=== PATIENT | female | born 1965 | race Caucasian/White ===

== ENCOUNTER → 2016-11-17 | Outpatient (CLI) | payer OTHER ==
--- NOTE | 2016-11-17 10:49 | DIAGNOSTIC IMAGING REPORT ---
RIGHT HAND 3 VIEWS HISTORY: RT HAND/THUMB PAIN Right COMPARISON: Right wrist 08/09/2014. FINDINGS: There is no fracture or dislocation. Soft tissues are unremarkable. Moderate to severe cartilage space narrowing at the STT joint. This is progressed. Mild cartilage space narrowing at the DIP joints. IMPRESSION: 1. No fracture or dislocation within the right hand. 2. 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 Electronically signed by: Salvador Barker M.D. 11/17/2016 10:47 AM Dictated Date/Time: 11/17/2016 10:44 AM
== END | disposition home or self-care (01) ==
LOC: C.RDSM 13:19
PROVIDERS: ATTEND Family Medicine
DX: M79.643 Pain in unspecified hand (principal); M19.031 Primary osteoarthritis, right wrist

== ENCOUNTER 2017-06-19 04:44 | Emergency (ER) | payer OTHER ==
[~2017-06-19] VITALS: Ht 152.4 cm; Wt 67.6 kg
[2017-06-19 04:46] VITALS: TEMP 36; Ht 152.4 cm; Wt 67.6 kg
[2017-06-19] MEDS ORDERED: KETOROLAC TROMETHAMINE 30 MG/ML VIAL IV STA (05:21)
[2017-06-19] MEDS ORDERED: IBUP-1050 PO (05:36)
[2017-06-19] MEDS ORDERED: ASPI1TAB48 PO (05:37)
[2017-06-19 06:09] LABS: BUN/CREATININE RATIO 20.3 (10-20); C-REACTIVE PROTEIN 0.29 mg/dl (0-0.29); CALCIUM 8.9 mg/dl (8.5-10.1); CREATININE 0.72 mg/dl (0.60-1.20); POTASSIUM 3.6 mmol/L (3.5-5.1)
[2017-06-19 06:50] LABS: LYME DISEASE AB IGG NEG (NEG); LYME DISEASE AB IGM NEG (NEG)
[2017-06-19 06:55] LABS: BASO % 0.7 %; BASO ABS # 0.05 K/uL (0-0.2); COMPLETE YES; EOS % 4.4 %; HEMATOCRIT 34.9 % (37-47); IG% 0.1 %; LYMPH % 33.5 %; MEAN CELL VOLUME 93.3 fL (80-100); MEAN CORPUSCULAR HEMOGLOBIN 32.4 pg (25-34); MEAN CORPUSCULAR HGB CONC 34.7 g/dl (32-36); MEAN PLATELET VOLUME 8.9 fL (7.4-10.4); MONO % 9.2 %; NEUT % 52.1 %; PLATELET COUNT 284 K/uL (130-400); RED BLOOD COUNT 3.74 M/uL (4.2-5.4); WHITE BLOOD COUNT 6.86 K/uL (4.8-10.8)
[2017-06-19] MEDS ORDERED: MoRPHine SULFATE 4 MG/ML 1 ML CARP\\VIAL IV STA (07:46)
[2017-06-19] MEDS ORDERED: ONDANSETRON INJ 2 MG/ML 2 ML VIAL IV STA (07:46)
--- NOTE | 2017-06-19 07:55 | EMERGENCY ROOM VISIT NOTE ---
History Report prepared by Srinivasan: Karen Taylor Under the Supervision of: Dr. Sulma Burton D.O. First contact with patient: 05:00 Chief Complaint: SWELLING TO EXTREMITY Stated Complaint: LT HAND NUMBNESS AND LT LEG SWELLING History of Present Illness The patient is a 51 year old female who presents to the Emergency Room with complaints of worsening swelling to her left hand starting 48 hours ago. The patient states that when she awoke in the middle of the night two nights ago, she felt like her hand was numb and had a dull pain in it. She reports that she went about her day like normal yesterday. She states that she woke up 2 hours ago and the pain had moved into her armpit and shoulder blade. She reports that she has little sensation in her hand, numbness, weakness, and tingling. She notes that she took Nuprin with no relief. She states it is worse with movement and currently describes it as an ache. The patient denies recent injury, new exercises, fevers, chills, rashes, chest pain, abdominal pain, and shortness of breath. Source of History: patient Onset: 48 hoursa go Position: hand (left) Quality: ache, other (swelling) Timing: worsening Modifying Factors (Worsening): movement Associated Symptoms: + weakness, + numbness, No fevers, No chills, No chest pain, No SOB, No abdominal pain, No rash Note: The patient complains of lack of sensation in her hand and tingling. The patient denies recent injury and new exercises. Review of Systems See HPI for pertinent positives & negatives. A total of 10 systems reviewed and were otherwise negative. Past Medical & Surgical Medical Problems: (1) No Known Active Medical Problems Family History Patient reports no known family medical history. Social History Smoking Status: Never Smoker Alcohol Use: occasionally Occupation Status: employed Current/Historical Medications Scheduled Aspirin (Aspirin Low Dose), 81 MG PO DAILY Prednisone (Prednisone), 50 MG PO DAILY Scheduled PRN Ibuprofen (Advil), 200-600 MG PO DIRECTED PRN for Pain Allergies Coded Allergies: No Known Allergies (Unverified , 06/19/17) Physical Exam Vital Signs Date Time Temp Pulse Resp B/P (MAP) Pulse Ox O2 Delivery O2 Flow Rate FiO2 06/19/17 11:22 70 16 135/74 95 06/19/17 09:55 65 16 145/77 97 Room Air 06/19/17 07:40 73 16 125/91 96 Room Air 06/19/17 04:46 36.0 89 22 162/84 97 Room Air Physical Exam HEENT: Head - normocephalic and atraumatic. Pupils are equal, round, and reactive to light. Extraocular eye muscles are intact and sclera are anicteric. Ears - bilaterally patent canals with noninjected tympanic membranes and no evidence of hemotympanum. Nose - moist nasal mucosa without discharge. Mouth - moist buccal mucosa. Oropharynx is nonerythematous and there is no tonsillar exudate or edema noted. Neck: Supple; no JVD, nuchal rigidity, cervical lymphadenopathy, or auscultated bruits. The patient has no pain to palpation over the posterior cervical spine. Heart: Regular rate and rhythm. There is a normal S1 and S2 with no murmurs, clicks, or gallops appreciated. Lungs: Clear to auscultation bilaterally with no wheezes, rales, or rhonchi. Abdomen: Soft, completely nontender, nondistended, with good bowel sounds. There are no palpable pulsatile masses or hepatosplenomegaly. There is no guarding, rigidity, or rebound noted. Extremities: No evidence of cyanosis or clubbing. Edema to left hand and wrist. There are easily palpable peripheral pulses. Neuro:The patient is awake and alert, oriented to day, time, and place. Muscle strength is 5/5 in her legs. Step Down Specialist strength in left hand was weaker than right. There are no cerebellar signs. Medical Decision & Procedures Laboratory Results 06/19/17 06:21 Red Blood Count 3.74, Mean Corpuscular Volume 93.3, Mean Corpuscular Hemoglobin 32.4, Mean Corpuscular Hemoglobin Concent 34.7, Mean Platelet Volume 8.9, Neutrophils (%) (Auto) 52.1, Lymphocytes (%) (Auto) 33.5, Monocytes (%) (Auto) 9.2, Eosinophils (%) (Auto) 4.4, Basophils (%) (Auto) 0.7, Neutrophils # (Auto) 3.57, Lymphocytes # (Auto) 2.30, Monocytes # (Auto) 0.63, Eosinophils # (Auto) 0.30, Basophils # (Auto) 0.05 06/19/17 05:35 Test 06/19/17 05:35 06/19/17 06:21 Anion Gap 5.0 mmol/L (3-11) Est Creatinine Clear Calc Drug Dose 78.4 ml/min Estimated GFR () 111.6 Estimated GFR (Non- 96.3 BUN/Creatinine Ratio 20.3 (10-20) Calcium Level 8.9 mg/dl (8.5-10.1) C-Reactive Protein 0.29 mg/dl (0-0.29) Lyme Disease IgG Antibody NEG (NEG) Lyme Disease IgM Antibody NEG (NEG) White Blood Count 6.86 K/uL (4.8-10.8) Red Blood Count 3.74 M/uL (4.2-5.4) Hemoglobin 12.1 g/dL (12.0-16.0) Hematocrit 34.9 % (37-47) Mean Corpuscular Volume 93.3 fL (80-100) Mean Corpuscular Hemoglobin 32.4 pg (25-34) Mean Corpuscular Hemoglobin Concent 34.7 g/dl (32-36) Platelet Count 284 K/uL (130-400) Mean Platelet Volume 8.9 fL (7.4-10.4) Neutrophils (%) (Auto) 52.1 % Lymphocytes (%) (Auto) 33.5 % Monocytes (%) (Auto) 9.2 % Eosinophils (%) (Auto) 4.4 % Basophils (%) (Auto) 0.7 % Neutrophils # (Auto) 3.57 K/uL (1.4-6.5) Lymphocytes # (Auto) 2.30 K/uL (1.2-3.4) Monocytes # (Auto) 0.63 K/uL (0.11-0.59) Eosinophils # (Auto) 0.30 K/uL (0-0.5) Basophils # (Auto) 0.05 K/uL (0-0.2) RDW Standard Deviation 42.3 fL (36.4-46.3) RDW Coefficient of Variation 12.5 % (11.5-14.5) Immature Granulocyte % (Auto) 0.1 % Immature Granulocyte # (Auto) 0.01 K/uL (0.00-0.02) Medications Administered Medications (Trade) Dose Ordered Sig/Yamileth Route Start Time Stop Time Status Last Admin Dose Admin Ketorolac Tromethamine (Toradol Inj) 30 mg NOW STAT IV 06/19/17 05:21 06/19/17 05:23 DC 06/19/17 05:38 30 MG Morphine Sulfate (MoRPHine SULFATE INJ) 4 mg NOW STAT IV 06/19/17 07:46 06/19/17 07:47 DC 06/19/17 08:05 4 MG Ondansetron HCl (Zofran Inj) 4 mg NOW STAT IV 06/19/17 07:46 06/19/17 07:47 DC 06/19/17 08:04 4 MG Prednisone (PredniSONE TAB) 60 mg NOW STAT PO 06/19/17 10:39 06/19/17 10:40 DC 06/19/17 11:14 60 MG Procedure 0521: Ordered Toradol Inj 30 mg IV. ED Course 0508: Past medical records reviewed. The patient was evaluated in room A9B. A complete history and physical exam was performed. A full neurological exam was performed. An IV lock was initiated and labs are drawn as above. 0521: Ordered Toradol Inj 30 mg IV. 0714: I reevaluated the patient and I awoke her from sleep. She states that her pain is gone but, that her left hand is still weak and numb. She reports that her right arm and hand now has tingling in it. I am going to send her for an MRI of the cervical spine and brain. 0730: I signed the patient out to Dr. Robertson at change of shift. Medical Decision This is a 51-year-old female patient presents to the emergency department with pain to her left upper extremity, swelling to the left hand and wrist, numbness and tingling in the fingertips of that hand, and weak property and supply officer strength in that hand. Differential diagnoses include Lyme disease, cervical disc herniation, cervical nerve impairment, brachial plexopathy. LABS: Lyme negative No leukocytosis Stable H&H Normal renal function and glucose The patient got relief of her pain in the emergency department with IV Toradol. However, she then began to note some numbness and tingling in the right hand. She will go for MRI of the brain and cervical spine. The case was signed out to Dr. Robertson at change shift awaiting those results. Impression Primary Impression: Left arm weakness Scribe Attestation The scribe's documentation has been prepared under my direction and personally reviewed by me in its entirety. I confirm that the note above accurately reflects all work, treatment, procedures, and medical decision making performed by me. Departure Information Prescriptions Prednisone (PREDNISONE) 50 Mg Tab 50 MG PO DAILY for 5 Days, #5 TAB Prov: Cooper Robertson, 06/19/17 Referrals Andre Bethea M.D. (PCP) Patient Instructions My [facility]
--- NOTE | 2017-06-19 09:43 | DIAGNOSTIC IMAGING REPORT ---
MRI OF THE CERVICAL SPINE WITHOUT CONTRAST CLINICAL HISTORY: Bilateral upper extremity weakness. Left hand numbness. Left leg swelling. COMPARISON: None. TECHNIQUE: Utilizing a 1.5 Zahida magnet and dedicated coil, multiplanar, multiecho imaging of the cervical spine was performed without IV contrast. FINDINGS: This exam is mildly compromised by motion artifact. Alignment of the cervical spine is anatomic. Vertebral body heights are maintained. There is no suspicious marrow replacement. No intracanalicular mass or fluid collection is present. Cervical cord signal is suboptimally assessed on this exam but appears normal. C2-C3: The central canal and left neural foramen are patent. There is mild narrowing of the right neural foramen. C3-C4: The central canal and neural foramen are patent. C4-C5: There is mild disc bulge with a tiny central disc protrusion and annular tear. Central canal is patent. There is minimal narrowing of the right neural foramen. C5-C6: The central canal is patent. There is moderate to severe left neural foraminal narrowing and mild right neural foraminal narrowing. C6-C7: There is minimal disc bulge. The central canal is patent. There is moderate bilateral neural foraminal stenosis. C7-T1: Central canal and neural foramen are patent. IMPRESSION: 1. Suboptimal evaluation of cervical cord signal given motion artifact. However, no cervical cord signal abnormality identified. 2. No significant central canal stenosis. 3. Multilevel neural foraminal stenosis, most pronounced at the left C5-C6 neural foramen, as described above. Electronically signed by: Garrett Valencia M.D. 06/19/2017 9:41 AM Dictated Date/Time: 06/19/2017 9:34 AM
--- NOTE | 2017-06-19 09:46 | DIAGNOSTIC IMAGING REPORT ---
BRAIN COMBO FOR MS HISTORY: 51 years-old Female bilat. upper ext weakness acute bilateral upper extremity weakness. COMPARISON: None available. TECHNIQUE: Multiplanar multisequence MRI of the brain was obtained both with and without the use of 6.5 mL Gadavist. FINDINGS: There is no restricted diffusion to suggest acute ischemia. The midline structures including the corpus callosum, brainstem, optic chiasm, infundibulum, pituitary and pineal gland are unremarkable in the sagittal T1 sequence. No cerebellar tonsillar herniation. 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 There is no acute intracranial hemorrhage, midline shift, abnormal extra-axial collections, intracranial mass or hydrocephalus. There are several scattered foci of T2/FLAIR prolongation which are predominantly seen within the subcortical to lesser extent periventricular white matter of the cerebral hemispheres bilaterally. No infratentorial lesions identified. Flow voids at the skull base appear patent. The right vertebral artery appears diminutive. Orbits are symmetric. Mastoid air cells are clear. There is mild ethmoid sinus disease with rightward nasal septal bowing. No abnormal enhancement identified. IMPRESSION: 1. No acute intracranial abnormality. 2. Multiple scattered foci of increased T2/FLAIR signal within the subcortical and to a lesser extent within the periventricular white matter of the cerebral hemispheres bilaterally is nonspecific and is favored to reflect chronic microvascular ischemic changes, however demyelinating disease such as multiple sclerosis could cause a similar appearance. 3. No abnormal enhancement. The above report was generated using voice recognition software. It may contain grammatical, syntax or spelling errors. Electronically signed by: Jay Harkins M.D. 06/19/2017 9:45 AM Dictated Date/Time: 06/19/2017 9:38 AM
[2017-06-19] MEDS ORDERED: PRED50TA PO (10:47)
[2017-06-19 11:22] VITALS: BP 135/74; PULSE 70; O2SAT 95
--- NOTE | 2017-06-19 14:34 | EMERGENCY ROOM VISIT NOTE ---
ED Visit Note First contact with patient: 07:53 Patient is a 51-year-old female who was signed out to me awaiting MRI of the brain and cervical spine. She initially complained of left upper extremity weakness per report and is now complaining of right arm weakness and numbness. Paresthesias. Review more focused in the ulnar distribution of the digits. On my exam she had no focal weakness but moderate pain with grass in bilateral hands. She does have a positive Tinel sign on the left wrist along with minimal pain on the right wrist upon palpation/tapping. MRI was discussed with neurology as below. They recommended steroids and following up in the office. I felt this is reasonable. I did discuss this with the patient and she was in agreement as the pain has improved significantly. This could be caused by a disc bulge vs carpal tunnel versus MS although unlikely as she has not had these symptoms before in the past. Discussed with Pt concerning signs and symptoms to watch out for. Pt was instructed to follow up with their PCP and discussed with the patient their option to return to the ED at anytime for persistent or worsening symptoms. The appropriate anticipatory guidance and out- patient management, including indications for return to the emergency department , were explained at length to the patient and understood. 1029: I discussed the patient's case with Dr. Rosario of neurology. He recommends a steroid burst and having her follow-up as an outpatient in the office. 1045: I reassessed the patient at this time. She is feeling better and resting comfortably. I discussed the results and treatment plan with the patient. I answered all pertaining questions that she had. She expressed understanding and verbalized agreement. The patient will be discharged home and will follow-up with Dr. Rosario in the office.
== END 2017-06-19 11:24 | disposition home or self-care (01) ==
LOC: C.EDB 04:45 → C.EDA 11:24
DX: R29.898 Other symptoms and signs involving the musculoskeletal system (principal); Z79.82 Long term (current) use of aspirin

== ENCOUNTER → 2018-02-02 | Outpatient (CLI) | payer OTHER ==
[~2018-02-02] MED LIST: ASPI1TAB48 PO; IBUP-1050 PO
--- NOTE | 2018-02-03 14:22 | MAMMOGRAPHY REPORT ---
BILATERAL DIGITAL SCREENING MAMMOGRAM TOMOSYNTHESIS WITH CAD: 02/02/2018 CLINICAL HISTORY: Routine screening. Patient has no complaints. TECHNIQUE: Breast tomosynthesis in addition to standard 2D mammography was performed. Current study was also evaluated with a Computer Aided Detection (CAD) system. COMPARISON: Comparison is made to exam dated: 04/02/2010 mammogram - [facility]. BREAST COMPOSITION: There are scattered areas of fibroglandular density in both breasts. FINDINGS: The parenchymal pattern is unchanged. No developing mass, architectural distortion or clus ter of suspicious microcalcifications is seen in either breast. IMPRESSION: ACR BI-RADS CATEGORY 2: BENIGN There is no mammographic evidence of malignancy. A 1 year screening mammogram is recommended. The pa tient will receive written notification of the results. Approximately 10% of breast cancers are not detected with mammography. A negative mammographic report should not delay biopsy if a clinically suggestive mass is present. Pratibha Felton M.D. ay/:02/02/2018 15:17:02 Drafting Detailer: Cheryl Saenz, [facility] letter sent: Normal 1/2 BI-RADS Code: ACR BI-RADS Category 2: Benign
== END | disposition home or self-care (01) ==
LOC: C.MAMM 13:03
PROVIDERS: ATTEND Family Medicine
DX: Z12.31 Encounter for screening mammogram for malignant neoplasm of breast (principal)